=== PATIENT | male | born 1965 | race Caucasian/White ===

== ENCOUNTER 2018-01-16 05:41 | Day surgery (SDC) | payer OTHER ==
[2018-01-03 11:59] VITALS: BMI 29.6
[2018-01-16] MEDS ORDERED: BUPIVACAINE HCL/PF 0.5% (5MG/ML) 10 ML VIAL ONE (07:12)
[2018-01-16] MEDS ORDERED: LIDOCAINE 1%/EPI 1:100000 (20 ML MULTI DOSE VIAL) ONE (07:12)
[2018-01-16] MEDS ORDERED: DEXAMETHASONE SOD PHOSPHATE 4 MG/1 ML VIAL ONE ×2 (07:55→08:40)
[2018-01-16] MEDS ORDERED: LIDOCAINE HCL/PF 2% SDV 5ML VIAL ONE (07:55)
[2018-01-16] MEDS ORDERED: MIDAZOLAM HCL 2 MG/2 ML SINGLE DOSE VIAL ONE (07:56)
[2018-01-16] MEDS ORDERED: PROPOFOL 20 ML ONE (07:56)
--- NOTE | 2018-01-16 08:10 | HP ---
[facility] - Chief Complaint Chief Complaint: left knee pain History Source: Patient - Past Medical History Allergies/Adverse Reactions: Allergies Allergy/AdvReac Type Severity Reaction Status Date / Time pollen extracts Allergy Intermediate Verified 01/16/18 06:37 No Known Drug Allergies Allergy Verified 01/16/18 06:37 APPLES, CHERRIES AND PEARS Allergy Intermediate Uncoded 01/16/18 06:37 - Current Medications Current Medications: Home Medications Medication Instructions Recorded Ascorbic Acid [Vitamin C -] 1 tab PO DAILY 01/03/18 Loratadine [Claritin] 10 mg PO DAILY 01/03/18 Satellite Physical Exam - Physical Examination Vital Signs: Vital Signs Period Temp Pulse Resp BP Sys/Schwarz Pulse Ox Last 24 Hr 97.8 F 91 16 148/94 98 Extremities: Other (+ left joint line tenderness) [facility]ellite Impression/Plan - Impression/Plan Impression: internal derangement left knee Operative Procedure: arthroscopy left knee Date to be Performed: 01/16/18
[2018-01-16] MEDS ORDERED: BUPIVACAINE HCL/PF (5 MG/ML) 30 ML VIAL IJ ONE (08:26)
[2018-01-16] MEDS ORDERED: LIDOCAINE 1%/EPI 1:100000 (50 ML MULTI DOSE VIAL) INF ONE (08:26)
--- NOTE | 2018-01-16 08:57 | OP ---
Operative Note - Note: Operative Date: 01/16/18 Pre-Operative Diagnosis: INTERNAL DERANGEMENT LEFT KNEE Operation: ARTHROSCOPY LEFT KNEE Post-Operative Diagnosis: Same as Pre-op Anesthesia: General Estimated Blood Loss (mls): 0 Operative Report Dictated: Yes
[2018-01-16] MEDS ORDERED: PROMETHAZINE HCL 25 MG/1 ML VIAL IVPUSH PRN (09:08)
[2018-01-16] MEDS ORDERED: oxyCODONE HCL 5 MG TABLET PO PRN (09:08)
[2018-01-16] MEDS ORDERED: LACTATED RINGERS SOLUTION 1,000 ML IV SCH (09:15)
--- NOTE | 2018-01-16 09:29 | SPEC ---
DATE OF OPERATION: 01/16/2018 PREOPERATIVE DIAGNOSIS: Internal derangement, left knee. POSTOPERATIVE DIAGNOSIS: Internal derangement, left knee. PROCEDURE: Arthroscopy, left knee, partial medial meniscectomy. SURGICAL ATTENDING: Geovanni Hemphill MD ANESTHESIA: LMA. CLOSURE: 4-0 nylon. COMPLICATIONS: None. CONDITION: To recovery room in stable condition. DESCRIPTION OF OPERATIVE PROCEDURE: Patient was taken to the operating room on January 16, 2018. General anesthesia with LMA was administered by the anesthesiologist. The left lower extremity was prepped and draped in the usual sterile fashion. The medial and lateral infrapatellar portal sites were infiltrated with 1% Xylocaine with epinephrine. Both portals were then made with a 15 blade followed by a blunt trocar. The scope was placed in the lateral infrapatellar portal and up into the suprapatellar pouch. The knee was inflated with a cocktail of 10 mL of 1% Xylocaine, 10 mL of 0.5% Marcaine, and 20 mL of arthroscopic saline. This was allowed to sit in the knee for a few minutes to allow the anesthetic to work intraarticularly. The scope was placed in the lateral infrapatellar portal and up into the suprapatellar pouch. The pouch was visualized to be clean. The medial and lateral gutters were visualized to be clean. The undersurface of the patella and trochlea were visualized to be intact. With valgus stress on the knee, the medial compartment was entered. The medial meniscus was visualized, probed, and found to have a complex tear of the posterior horn. This was debrided back to smooth stable meniscal tissue using a meniscal biter and arthroscopic shaver. The medial femoral condyle was run and found to be intact as well as the medial tibial plateau. At 90 degrees, the ACL was visualized, probed, and found to be intact. In the figure 4 position, the lateral compartment was entered. The lateral meniscus was visualized, probed, and found to be intact. The lateral femoral condyle was run and found to be intact as was the lateral tibial plateau. The knee was irrigated with copious amounts of irrigation and then the fluid was drained. The inferomedial portal was closed then with 4-0 nylon. Prior to pulling the trocar from the lateral infrapatellar portal, 20 mL of 0.5% Marcaine was infused into the knee for postoperative analgesia. The trocar was then pulled and the incision was closed with 4-0 nylon suture. A sterile pressure dressing was applied. Patient awakened from anesthesia and transferred to recovery in stable condition. No complication. Estimated blood loss negligible. Sully [id number]
[2018-01-16 10:04] VITALS: PULSE 88; TEMP 98.5
[2018-01-16 12:55] VITALS: BP 143/82
--- NOTE | 2018-01-18 17:26 | PATH ---
Surgical Pathology Report Patient Name: BALJINDER ARIAS Med. Rec. #: [id number] /Age/Gender: 1965 (Age: 52) / M Account: [id number] Location: [facility] SUR[facility]ICAL Taken: 01/16/2018 Received: 01/16/2018 Reported: 01/18/2018 Physicians: Geovanni Hemphill M.D. Specimen(s) Received LEFT KNEE SHAVINGS Clinical History Internal derangement left knee Final Diagnosis LEFT KNEE SHAVINGS: FRAGMENTS OF FIBROCARTILAGINOUS TISSUE AND SYNOVIAL TISSUE WITH DEGENERATIVE CHANGE. Electronically Signed Grant Salazar M.D. Gross Description Received in formalin, labeled "left knee shavings," is a 4.0 x 2.5 x 0.4 cm. aggregate of madrid-yellow soft tissue fragments. A metals sales representative portion is submitted in one cassette. /01/16/201801/16/2018
== END 2018-01-16 11:15 | disposition home or self-care (01) ==
LOC: JASU-SURG 05:41
PROVIDERS: ATTEND Orthopaedic Surgery
PROC: 0SBD4ZZ Excision of Left Knee Joint, Percutaneous Endoscopic Approach (ICD-10-PCS; principal; 2018-01-16 08:00)
DX: S83.232A Complex tear of medial meniscus, current injury, left knee, initial encounter (principal); X58.XXXA Exposure to other specified factors, initial encounter; Y93.9 Activity, unspecified; Y92.9 Unspecified place or not applicable; Y99.9 Unspecified external cause status